=== PATIENT | male | born 1985 | race Two or more races ===

== ENCOUNTER 2018-02-13 22:04 | Inpatient (IN) | payer OTHER ==
[~2018-02-13] VITALS: Ht 172.7 cm; Wt 86.7 kg
--- NOTE | 2018-02-13 22:08 | ED.ADGEN ---
Past History Past Medical History: Hypertension, Other Additional Past Medical Histor: gout Smoking: Non-smoker Drug Use: None Adult General Chief Complaint Chief Complaint ".. I was in the shower.. and started getting dizzy.. and almost completely passed out... I ve had this happen before... " ( Pt. ) ".. I seen he was having problems... he went down.. and was yanira out of it.. confused for over 30 minutes... he was still confused by the time we got here... " ".. I don't know what his pulse rate was.. he did seem to be breathing ..okay.. 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 Pt. denies any chest pain. Denies any shortness of breath. Pt. has had prior episodes of syncope. Patient states onset is dizziness and then everything blacks out. There have been times when he falls so hard he has hit his head. At time of onset of dizziness he was taking a very hot shower. No recent trauma. Recent travel to [facility] for training. No overseas travel recently. Pt. does have a hx of gout and hypertension. There is a strong family history of cardiac disease in the ages of 30+ on both sides of the family. Both sides of family have HTN and Gout. Patient denies any drug use. Patient does have a mild headache currently. Currently assigned to [employer] at [place]. Patient states he works out every day as part of his assignment. Training consist of running two miles + and wt lifting. Pt. 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 Pt. feels he is in extremely good physical condition. Pt. states he can usually tell when a episode in coming on. Dose not know if he has any change in heart rate. Review of Systems Review of Systems Constitutional: Denies fever or chills [] Eyes: Denies change in visual acuity, redness, or eye pain [] HENT: Denies nasal congestion or sore throat [] Respiratory: Denies cough or shortness of breath [] Cardiovascular: No additional information not addressed in HPI [] GI: Denies abdominal pain, nausea, vomiting, bloody stools or diarrhea [] : Denies dysuria or hematuria [] Musculoskeletal: Denies back pain or joint pain [] Integument: Denies rash or skin lesions [] Neurologic: Denies headache, focal weakness or sensory changes []Complaints of syncope and confusion. Endocrine: Denies polyuria or polydipsia [] All other systems were reviewed and found to be within normal limits, except as documented in this note. Family History Family History [place] and Cardiac events, gout, htn in age 30's- both sides of the family. Current Medications Current Medications Current Medications Medications (Trade) Dose Ordered Sig/Jacqui Start Time Stop Time Status Last Admin Dose Admin Lactated Ringer's 1,000 ml @ 1,000 mls/hr Q1H 02/13/18 22:09 02/13/18 23:36 DC 02/13/18 23:28 1,000 MLS/HR See Nursing for home meds. Allergies Allergies nkda Physical Exam Physical Exam Constitutional: Well developed, well nourished, no acute distress, non-toxic appearance. [] HENT: Normocephalic, atraumatic, bilateral external ears normal, oropharynx moist, no oral exudates, nose normal. [] Eyes: PERRLA, EOMI, conjunctiva normal, no discharge. [] Neck: Normal range of motion, no tenderness, supple, no stridor. [] Cardiovascular: Bradycardia Heart rate regular rhythm, no murmur [] Lungs & Thorax: Bilateral breath sounds clear to auscultation [] Abdomen: Bowel sounds normal, soft, no tenderness, no masses, no pulsatile masses. [] Skin: Warm, dry, no erythema, no rash. [] Back: No tenderness, no CVA tenderness. [] Extremities: No tenderness, no cyanosis, no clubbing, ROM intact, no edema. [] Neurologic: Alert and oriented X 3, normal motor function, normal sensory function, no focal deficits noted. []DTRs +2 patella and brachial. Knowledge Architect equal. No drift. Ambulatory without problems. Psychologic: Affect anxious, judgement normal, mood normal. [] Current Patient Data Vital Signs Vital Signs Date Time Temp Pulse Resp B/P (MAP) Pulse Ox O2 Delivery O2 Flow Rate FiO2 02/13/18 22:21 98.2 75 19 97 Room Air Lab Results Laboratory Tests Test 02/13/18 22:38 White Blood Count 7.3 x10^3/uL (4.0-11.0) Red Blood Count 5.01 x10^6/uL (4.30-5.70) Hemoglobin 14.9 g/dL (13.0-17.5) Hematocrit 43.4 % (39.0-53.0) Mean Corpuscular Volume 86 fL (79-100) Mean Corpuscular Hemoglobin 30 pg (25-35) Mean Corpuscular Hemoglobin Concent 34 g/dL (31-37) Red Cell Distribution Width 13.6 % (11.5-14.5) Platelet Count 215 x10^3/uL (140-400) Neutrophils (%) (Auto) 74 % (31-73) H Lymphocytes (%) (Auto) 19 % (24-48) L Monocytes (%) (Auto) 6 % (0-9) Eosinophils (%) (Auto) 1 % (0-3) Basophils (%) (Auto) 1 % (0-3) Neutrophils # (Auto) 5.3 x10^3uL (1.8-7.7) Lymphocytes # (Auto) 1.4 x10^3/uL (1.0-4.8) Monocytes # (Auto) 0.4 x10^3/uL (0.0-1.1) Eosinophils # (Auto) 0.1 x10^3/uL (0.0-0.7) Basophils # (Auto) 0.0 x10^3/uL (0.0-0.2) Erythrocyte Sedimentation Rate 4 (0-15) Prothrombin Time 9.9 SEC (9.4-11.4) Prothrombin Time INR 1.0 (0.9-1.1) PTT 25 SEC (23-33) D-Dimer (Kati) 0.25 mg/L (0.00-0.50) Sodium Level 139 mmol/L (136-145) Potassium Level 4.2 mmol/L (3.5-5.1) Chloride Level 102 mmol/L (98-107) Carbon Dioxide Level 28 mmol/L (21-32) Anion Gap 9 (6-14) Blood Urea Nitrogen 18 mg/dL (8-26) Creatinine 1.3 mg/dL (0.7-1.3) Estimated GFR (Cockcroft-Gault) 63.2 Glucose Level 119 mg/dL (70-99) H Calcium Level 8.7 mg/dL (8.5-10.1) Magnesium Level 1.9 mg/dL (1.8-2.4) Total Bilirubin 0.3 mg/dL (0.2-1.0) Direct Bilirubin 0.1 mg/dL (0.0-0.2) Aspartate Amino Transferase (AST) 9 U/L (15-37) L Alanine Aminotransferase (ALT) 20 U/L (16-63) Alkaline Phosphatase 58 U/L (46-116) Creatine Kinase 94 U/L (39-308) Troponin I Quantitative < 0.017 ng/mL (0-0.055) Total Protein 7.7 g/dL (6.4-8.2) Albumin 4.2 g/dL (3.4-5.0) Lipase 262 U/L (73-393) Ethyl Alcohol Level < 10 mg/dL (0-10) EKG EKG []My interpretation of EKG shows a sinus rhythm at 61 bpm. There is occasional premature atrial contraction. There is some J-point elevation. But no findings acute STEMI with contralateral changes. There is some slight slurring of the ST segment in aVF and lead II Radiology/Procedures Radiology/Procedures I interpretation chest x-ray shows no acute cardiopulmonary findings.[] Course & Med Decision Making Course & Med Decision Making Pertinent Labs and Imaging studies reviewed. (See chart for details). Because of recurrent episodes of syncope and syncope with prolonged confusion. Will admit for observation tonight. Cardiac cause is suspected. Admit to [facility] with cardiology consult and neuro consults. [] Final Impression Final Impression 1. Syncope 2. Hx HTN 3. Hx. Gout Dragon Disclaimer Dragon Disclaimer This electronic medical record was generated, in whole or in part, using a voice recognition dictation system. ASHU RAHMAN MD Feb 13, 2018 22:08
[2018-02-13] MEDS ORDERED: IV RINGERS SOLUTION,LACTATED 1,000 ML IV SCH (22:09)
[2018-02-13 23:07] LABS: BASO % 1 % (0-3); EOS # 0.1 x10^3/uL (0.0-0.7); EOS % 1 % (0-3); HEMATOCRIT 43.4 % (39.0-53.0); HEMOGLOBIN 14.9 g/dL (13.0-17.5); LYMPH # 1.4 x10^3/uL (1.0-4.8); LYMPH % 19 % (24-48); MEAN CORPUSCULAR HEMOGLOBIN 30 pg (25-35); MEAN CORPUSCULAR HGB CONC 34 g/dL (31-37); MEAN CORPUSCULAR VOLUME 86 fL (79-100); MONO # 0.4 x10^3/uL (0.0-1.1); MONO % 6 % (0-9); NEUT # 5.3 x10^3uL (1.8-7.7); NEUT % 74 % (31-73); PLATELET COUNT 215 x10^3/uL (140-400); RED BLOOD COUNT 5.01 x10^6/uL (4.30-5.70); RED CELL DISTRIBUTION WIDTH 13.6 % (11.5-14.5); WHITE BLOOD COUNT 7.3 x10^3/uL (4.0-11.0)
[2018-02-13 23:19] LABS: ALBUMIN 4.2 g/dL (3.4-5.0); CALCIUM 8.7 mg/dL (8.5-10.1); CREATININE 1.3 mg/dL (0.7-1.3); DIRECT BILIRUBIN 0.1 mg/dL (0.0-0.2); GFR 63.2; MAGNESIUM 1.9 mg/dL (1.8-2.4); POTASSIUM 4.2 mmol/L (3.5-5.1); TOTAL BILIRUBIN 0.3 mg/dL (0.2-1.0); TOTAL PROTEIN 7.7 g/dL (6.4-8.2)
[2018-02-13 23:31] LABS: BARBITURATES NEG (NEG); BENZODIAZEPINES NEG (NEG); CANNABINOIDS NEG (NEG); COCAINE NEG (NEG); METHADONE NEG (NEG); OPIATES NEG (NEG); PHENCYCLIDINE NEG (NEG)
[2018-02-13 23:32] LABS: BACTERIA,URINE 0 /HPF (0-FEW); BILIRUBIN,URINE NEG (NEG); CLARITY,URINE CLEAR; COLOR,URINE YELLOW; GLUCOSE,URINE NEG (NEG); NITRITE,URINE NEG (NEG); RBC,URINE 0 /HPF (0-2); SQUAMOUS EPITHELIAL CELL,UR OCC /LPF; UROBILINOGEN,URINE 0.2 mg/dL (0.2 mg/dL); WBC,URINE RARE /HPF (0-4)
--- NOTE | 2018-02-13 23:32 | RAD ---
INDICATION: Syncope, dizziness tonight COMPARISON: None. TECHNIQUE: Axial CT images obtained through the head without intravenous contrast. One or more of the following individualized dose reduction techniques were utilized for this examination: 1. Automated exposure control; 2. Adjustment of the mA and/or kV according to patient size; 3. Use of iterative reconstruction technique. FINDINGS: No intracranial hemorrhage. No midline shift. Basal cisterns patent. Ventricles and sulci are unremarkable. No acute osseous abnormality. Orbits and paranasal sinuses unremarkable. IMPRESSION: 1. No acute intracranial hemorrhage. Electronically signed by: Vish Florez MD (02/13/2018 11:28 PM) [facility]
[2018-02-13 23:35] LABS: AMPHETAMINE/METHAMPHETAMINE NEG (NEG)
[2018-02-13] MEDS ORDERED: ANTI-COAG MONITOR BY PHARMACY. MC PRN (23:45)
[2018-02-13] MEDS ORDERED: ONDANSETRON PF 4 MG/2 ML VIAL. IV PRN (23:45)
[2018-02-13] MEDS ORDERED: ENOXAPARIN ** NOTE DOSE ** SYRINGE SQ STA (23:50)
[2018-02-14] MEDS ORDERED: ASPIRIN 325 MG TABLET PO ONE
[2018-02-14 00:04] LABS: SEDIMENTATION RATE 4 (0-15)
[2018-02-14] MEDS: ENOXAPARIN ** NOTE DOSE ** SYRINGE SQ SCH ×2 (00:15→07:43)
[2018-02-14 00:47] VITALS: BP 116/76
--- NOTE | 2018-02-14 00:58 | EKG ---
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
--- NOTE | 2018-02-14 01:39 | EKG ---
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
[2018-02-14 04:24] VITALS: BP 114/71
[2018-02-14 06:47] LABS: BASO % 1 % (0-3); EOS # 0.2 x10^3/uL (0.0-0.7); EOS % 2 % (0-3); HEMOGLOBIN 14.6 g/dL (13.0-17.5); LYMPH # 2.2 x10^3/uL (1.0-4.8); LYMPH % 31 % (24-48); MEAN CORPUSCULAR HEMOGLOBIN 29 pg (25-35); MEAN CORPUSCULAR HGB CONC 34 g/dL (31-37); MEAN CORPUSCULAR VOLUME 87 fL (79-100); MONO # 0.5 x10^3/uL (0.0-1.1); MONO % 8 % (0-9); NEUT # 4.1 x10^3uL (1.8-7.7); NEUT % 58 % (31-73); PLATELET COUNT 212 x10^3/uL (140-400); RED BLOOD COUNT 4.95 x10^6/uL (4.30-5.70); RED CELL DISTRIBUTION WIDTH 13.4 % (11.5-14.5); WHITE BLOOD COUNT 7.1 x10^3/uL (4.0-11.0)
[2018-02-14 06:52] LABS: CALCIUM 8.9 mg/dL (8.5-10.1); CREATININE 1.1 mg/dL (0.7-1.3); GFR 76.6; POTASSIUM 3.4 mmol/L (3.5-5.1)
--- NOTE | 2018-02-14 09:09 | PDOC2 ---
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 He presents with complaints of a syncopal episode that occurred during a shower. He reports a sensation of lightheadedness and his heart racing and then has no clear memory until he was in the hospital. He says his reported that she caught him before he actually fell and that he had what looked like a seizure. His is not currently present. She reported to the ED that he remained awake but confused until arriving at the ED. He denies loss of continence or biting of tongue. He reports 3 other syncopal episodes over his lifetime starting when he was a teenager. He has had one other episode since being stationed at [facility] [facility] over the last 3 years. He does report episodes of lightheadedness and graying of vision for which he generally sits down and holds his arms in the air. He says these episodes usually resolve after a few minutes. He denies chest discomfort, dyspnea, congestive symptoms. He denies any recent illness, nausea, vomiting or diarrhea. He reports being physically fit and completes his daily PT without problems. This consists of running two + miles and wt lifting. 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 Cardiovascular: HTN Rheumatologic: Gout Past Surgical History wrist Family History He reports cardiac problems in several family members "you name it, they have it " including CAD with MO in father at <age 60, as well as hypertension. Social History non smoker, no significant ETOH, no illicit drugs. 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 Current Medications Current Medications Lactated Ringer's 1,000 ml @ 1,000 mls/hr Q1H IV Last administered on at 23:28; Start 02/13/18 at 22:09; Stop 02/13/18 at 23:36; Status DC Ondansetron HCl (Zofran) 4 mg PRN Q4HRS PRN IV NAUSEA/VOMITING; Start 02/13/18 at 23:45; Stop 02/14/18 at 23:44 Aspirin (Ede Aspirin) 325 mg 1X ONCE PO ; Start 02/14/18 at 00:00; Stop 02/14 at 00:01; Status DC Enoxaparin Sodium (Lovenox 100mg Syringe) 90 mg BID SQ Last administered on 02/14/18at 07:43; Start 02/14/18 at 00:00 Enoxaparin Sodium (Lovenox 100mg Syringe) 90 mg 1X STAT SQ ; Start 02/13/18 at 23:50; Stop 02/13/18 at 23:51; Status UNV Info (Anti-Coagulation Monitoring By Pharmacy) 1 each PRN DAILY PRN MC SEE COMMENTS; Start 02/13/18 at 23:45 Allergies: Coded Allergies: No Known Drug Allergies (Unverified , 02/13/18) Review of System as per HPI or negative General: Alert, Oriented X3, Cooperative, No acute distress HEENT: Atraumatic, EOMI, Other (no Carotid bruits) Lungs: Clear to auscultation, Normal air movement Heart: Regular rate, Normal S1, Normal S2, No murmurs Abdomen: Normal bowel sounds, Soft, No tenderness Extremities: No clubbing, No cyanosis, No edema, Normal pulses Neuro: Normal speech, Strength at 5/5 X4 ext Psych/Mental Status: Mental status NL, Mood NL VITALS Vital Signs Date Time Temp Pulse Resp B/P (MAP) Pulse Ox O2 Delivery O2 Flow Rate FiO2 02/14/18 04:24 97.6 57 14 114/71 (85) 98 Room Air Labs Laboratory Tests Test 02/13/18 22:38 02/13/18 23:01 02/14/18 01:48 02/14/18 06:03 White Blood Count 7.3 x10^3/uL (4.0-11.0) 7.1 x10^3/uL (4.0-11.0) Red Blood Count 5.01 x10^6/uL (4.30-5.70) 4.95 x10^6/uL (4.30-5.70) Hemoglobin 14.9 g/dL (13.0-17.5) 14.6 g/dL (13.0-17.5) Hematocrit 43.4 % (39.0-53.0) 43.0 % (39.0-53.0) Mean Corpuscular Volume 86 fL (79-100) 87 fL (79-100) Mean Corpuscular Hemoglobin 30 pg (25-35) 29 pg (25-35) Mean Corpuscular Hemoglobin Concent 34 g/dL (31-37) 34 g/dL (31-37) Red Cell Distribution Width 13.6 % (11.5-14.5) 13.4 % (11.5-14.5) Platelet Count 215 x10^3/uL (140-400) 212 x10^3/uL (140-400) Neutrophils (%) (Auto) 74 % (31-73) 58 % (31-73) Lymphocytes (%) (Auto) 19 % (24-48) 31 % (24-48) Monocytes (%) (Auto) 6 % (0-9) 8 % (0-9) Eosinophils (%) (Auto) 1 % (0-3) 2 % (0-3) Basophils (%) (Auto) 1 % (0-3) 1 % (0-3) Neutrophils # (Auto) 5.3 x10^3uL (1.8-7.7) 4.1 x10^3uL (1.8-7.7) Lymphocytes # (Auto) 1.4 x10^3/uL (1.0-4.8) 2.2 x10^3/uL (1.0-4.8) Monocytes # (Auto) 0.4 x10^3/uL (0.0-1.1) 0.5 x10^3/uL (0.0-1.1) Eosinophils # (Auto) 0.1 x10^3/uL (0.0-0.7) 0.2 x10^3/uL (0.0-0.7) Basophils # (Auto) 0.0 x10^3/uL (0.0-0.2) 0.0 x10^3/uL (0.0-0.2) Erythrocyte Sedimentation Rate 4 (0-15) Prothrombin Time 9.9 SEC (9.4-11.4) Prothromb Time International Ratio 1.0 (0.9-1.1) Activated Partial Thromboplast Time 25 SEC (23-33) D-Dimer (Kati) 0.25 mg/L (0.00-0.50) Sodium Level 139 mmol/L (136-145) 141 mmol/L (136-145) Potassium Level 4.2 mmol/L (3.5-5.1) 3.4 mmol/L (3.5-5.1) Chloride Level 102 mmol/L (98-107) 104 mmol/L (98-107) Carbon Dioxide Level 28 mmol/L (21-32) 30 mmol/L (21-32) Anion Gap 9 (6-14) 7 (6-14) Blood Urea Nitrogen 18 mg/dL (8-26) 14 mg/dL (8-26) Creatinine 1.3 mg/dL (0.7-1.3) 1.1 mg/dL (0.7-1.3) Estimated GFR (Cockcroft-Gault) 63.2 76.6 Glucose Level 119 mg/dL (70-99) 108 mg/dL (70-99) Calcium Level 8.7 mg/dL (8.5-10.1) 8.9 mg/dL (8.5-10.1) Magnesium Level 1.9 mg/dL (1.8-2.4) Total Bilirubin 0.3 mg/dL (0.2-1.0) Direct Bilirubin 0.1 mg/dL (0.0-0.2) Aspartate Amino Transf (AST/SGOT) 9 U/L (15-37) Alanine Aminotransferase (ALT/SGPT) 20 U/L (16-63) Alkaline Phosphatase 58 U/L (46-116) Creatine Kinase 94 U/L (39-308) Troponin I Quantitative < 0.017 ng/mL (0-0.055) < 0.017 ng/mL (0-0.055) Total Protein 7.7 g/dL (6.4-8.2) Albumin 4.2 g/dL (3.4-5.0) Lipase 262 U/L (73-393) Ethyl Alcohol Level < 10 mg/dL (0-10) Urine Collection Type Unknown Urine Color Yellow Urine Clarity Clear Urine pH 5.5 Urine Specific [place] 1.020 Urine Protein 30 mg/dl (NEG-TRACE) Urine Glucose (UA) Neg mg/dL (NEG) Urine Ketones (Stick) Neg mg/dL (NEG) Urine Blood Neg (NEG) Urine Nitrite Neg (NEG) Urine Bilirubin Neg (NEG) Urine Urobilinogen Dipstick 0.2 mg/dL (0.2 mg/dL) Urine Leukocyte Esterase Neg (NEG) Urine RBC 0 /HPF (0-2) Urine WBC Rare /HPF (0-4) Urine Squamous Epithelial Cells Occ /LPF Urine Bacteria 0 /HPF (0-FEW) Urine Opiates Screen Neg (NEG) Urine Methadone Screen Neg (NEG) Urine Barbiturates Neg (NEG) Urine Phencyclidine Screen Neg (NEG) Urine Amphetamine/Methamphetamine Neg (NEG) Urine Benzodiazepines Screen Neg (NEG) Urine Cocaine Screen Neg (NEG) Urine Cannabinoids Screen Neg (NEG) Urine Ethyl Alcohol Neg (NEG) Assessment/Plan 1. syncope - prob neurocardiogenic. Neuro consulted to rule out seizure with plans for possible outpatient EEG monitoring. Check orthostatic vital signs. Suggest echo and outpatient event monitoring for arrhythmias. Reviewed preventative actions/exercises with patient. 2. hypertension - controlled on current therapy. 3. mild hypokalemia - replace per PCP FIONA BREAUX MD 02/14/18 2114: CONSULT Assessment/Plan Patient seen and examined. Agree with AIRPORT OPERATIONS COORDINATOR's assessment and plan. Recurrent syncope suspicious for neurocardiogenic etiology 2D echo showed normal LV function Tele did not show any significant arrhythmias Plan outpatient Tilt table test and event monitor recording Thank you for your consultation BOLA SANABRIA APRN Feb 14, 2018 09:09 FIONA BREAUX MD Feb 14, 2018 21:14
--- NOTE | 2018-02-14 09:17 | RAD ---
Examination: CHEST PA LATERAL History: Syncope, dizziness tonight Comparison/Correlation: None Findings: PA and lateral views of chest were obtained. Heart size and pulmonary vascular are normal. No infiltrate or pleural effusion. Bony structures are normal. Impression: No active disease. Electronically signed by: Gilbert Cox MD (02/14/2018 9:13 AM) [id number]
[2018-02-14 10:21] VITALS: BP 113/77
--- NOTE | 2018-02-14 10:45 | HP ---
ADMIT DATE: 02/13/2018 HISTORY OF PRESENT ILLNESS: The patient is a 32-year-old male patient who came to the Emergency Room. Apparently, he was in the shower and started getting dizzy, almost completely passed out. Apparently, he has had this happened before about 4-5 times. Apparently, his witnessed and saw him went down, he was kind of out of it, according to her confused for over 30 minutes. He was still confused by the time he got to the Emergency Room. He did have some twitching. He was evaluated in the Emergency Room and was extensively investigated including lab work and imaging studies that include head CT and was admitted to consult the neurologist as well as the Cardiology team. PAST MEDICAL HISTORY: Significant for hypertension, gout, and glaucoma. He apparently has had similar symptoms before, but was never diagnosed with any seizure or cardiac arrhythmias. PAST SURGICAL HISTORY: Significant for wisdom teeth extraction. ALLERGIES: He has no known drug allergies. MEDICATIONS: Unfortunately, we do not know the medications that he is on, as he gets medications from [facility]. FAMILY HISTORY: He has 3 brothers and 4 sisters. His older brother has hypertension and gout and his oldest sister has hypertension, CVA. His mother is alive in her 50s and she has multiple cerebrovascular accidents. His father is alive in his early 60s and has hypertension and gout. SOCIAL HISTORY: He is , has 2 sons and 2 daughters. He does not smoke, drink alcohol or do recreational drugs. 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 REVIEW OF SYSTEMS: The patient denied any blurring of vision, cataract, glaucoma or macular degeneration. He has had glaucoma in his right eye. Denied any earache, tinnitus or sensorineural deafness. Denied any nosebleeds, stuffy nose or postnasal drip. Denied any sore throat, sore tongue, toothache, hoarseness of voice or difficulty swallowing. Denied any nausea, vomiting, diarrhea or constipation. Denied any hematemesis, melena or hematochezia. Denied any dysuria, frequency or hematuria. Denied any chest pain, shortness of breath, orthopnea, paroxysmal nocturnal dyspnea. Denied any cough, phlegm or hemoptysis. Did complain of dizziness and syncope, possible seizure with postictal state. PHYSICAL EXAMINATION: GENERAL: On arrival to the Emergency Room, he apparently looked well and was clearly in no apparent respiratory distress. No pallor, jaundice, cyanosis, lymphadenopathy or thyromegaly. No jugular venous distension. No limb edema. VITAL SIGNS: His heart rate was 75, blood pressure 142/82, temperature was 98.2, respiratory rate was 19 and oxygen saturation was 97% on room air. HEENT: Showed normocephalic, atraumatic. NECK: Supple. HEART: Showed normal first and second sounds. No gallop, rub or murmur. CHEST: Clear to auscultation. No crepitation or rhonchi. ABDOMEN: Distended, soft, nontender. No guarding or rigidity. No organomegaly. Hernial orifice intact. Bowel sounds normal. NEUROLOGIC: He was awake, alert, responding appropriately. All cranial nerves intact. EXTREMITIES: He moves extremities without difficulty. He was ambulating without any difficulty. Examination of the extremities showed no clubbing, cyanosis or edema. LABORATORY DATA: While in the Emergency Room, he was extensively investigated. He had CBC, which showed a white cell count of 7300, hemoglobin 15, hematocrit 43, MCV 86 and platelet count of 215,000 with normal manual differential. His chemistry showed a serum sodium of 139, potassium 4.2, chloride 102, bicarbonate 28, anion gap of 9, BUN 18, creatinine 1.3, estimated GFR was 63 mL per minute. His glucose was 119. Calcium was 8.7, magnesium was 1.9. Total bilirubin, AST, ALT, alkaline phosphatase were normal. His CK was 94 and had 2 sets of cardiac enzymes, both were negative and showed troponin to be less than 0.017. Total protein was 7.7, albumin was 4.2 and lipase was 262. His prothrombin time was 9.9, INR of 1, aPTT was 25 and D-dimer was only 0.25 mg/dL. Urinalysis showed the urine was yellow, clear with a pH of 5.5, specific gravity of 1.028. There was a small amount of protein. The urine was negative for glucose, ketones, blood, nitrite, bilirubin and leukocyte esterase. There was no rbc's, very few wbc's and no bacteria. His urine toxicology screen was negative. RADIOLOGICAL DATA: His CT scan of the head showed no intracranial hemorrhage, no midline shift. Basal cisterns are patent. Ventricles and sulci are unremarkable. No acute osseous abnormality. Orbits and paranasal sinuses are unremarkable. His chest x-ray showed that the heart size and pulmonary vasculature are normal. No infiltrate, pleural effusion. Bony structures are normal. SUMMARY: This is a 32-year-old male patient who came in with a syncopal episode versus seizure with postictal state. PLAN: I have consulted the contact acid plant operator as well as the Neurology team to assist in his evaluation and management. JONO SANTIAGO MD DR: FORTUNATO/jose JOB#: [id number] / [id number]
[2018-02-14 14:46] VITALS: BP 125/82
--- NOTE | 2018-02-14 17:39 | CARD ---
MR#: [id number] Date of Study: 02/14/2018 Ordering Physician: JONO SANTIAGO, Referring Physician: JONO SANTIAGO, Tech: Usha Rolle APPROVED REPORT EXAM: Two-dimensional and M-mode echocardiogram with Doppler and color Doppler. Other Information Quality : GoodHR: 62bpm Rhythm : NSR INDICATION Syncope 2D DIMENSIONS RVDd2.4 (2.9-3.5cm)Left Atrium(2D)3.3 (1.6-4.0cm) IVSd1.1 (0.7-1.1cm)Aortic Root(2D)3.5 (2.0-3.7cm) LVDd4.5 (3.9-5.9cm)LVOT Diameter2.1 (1.8-2.4cm) PWd1.0 (0.7-1.1cm)LVDs3.2 (2.5-4.0cm) FS (%) 29.1 %SV52.4 ml Aortic Valve AoV Peak Rocky.117.5cm/sAoV VTI22.3cm AO Peak GR.5.5mmHgLVOT Peak Rocky.95.7cm/s LVOT VTI 17.71cmAO Mean GR.3mmHg BELKYS (VMAX)2.76qc2ATF (VTI)2.75cm2 Mitral Valve MV E Ehgojpdq64.8cm/sMV DECEL [id number] MV A Zbtqmzfg68.7cm/sE/A Ratio1.6 Pulmonary Valve PV Peak Zoewvpet66.4cm/sPV Peak Grad.3mmHg Tricuspid Valve TR P. Terhotku145iz/sRAP XMUMLBMB1nsDs TR Peak Gr.94sqRdNUMZ11bdKe Pulmonary Vein S1 Ubfqutkj48.7cm/sD2 Rnggdugl10.8cm/s LEFT VENTRICLE The left ventricle is normal size. There is normal left ventricular wall thickness. The left ventricu lar systolic function is normal and the ejection fraction is within normal range. The Ejection Fracti on is 55-60%. There is normal LV segmental wall motion. The left ventricular diastolic function and f illing is normal for age. RIGHT VENTRICLE The right ventricle is normal size. There is normal right ventricular wall thickness. The right ventr icular systolic function is normal. ATRIA The left atrium size is normal. The right atrium size is normal. The interatrial septum is intact wit h no evidence for an atrial septal defect or patent foramen ovale as noted on 2-D or Doppler imaging. AORTIC VALVE The aortic valve is normal in structure and function. Doppler and Color Flow revealed no significant aortic regurgitation. There is no significant aortic valvular stenosis. MITRAL VALVE The mitral valve is normal in structure and function. There is no mitral valve stenosis. Doppler and Color Flow revealed trace mitral regurgitation. TRICUSPID VALVE The tricuspid valve is normal in structure and function. Doppler and Color Flow revealed trace tricus pid regurgitation. PULMONIC VALVE The pulmonary valve is normal in structure and function. Doppler and Color Flow revealed trace pulmon ic valvular regurgitation. GREAT VESSELS The aortic root is normal in size. Normal pulmonary venous flow (Doppler). The IVC is normal in size and collapses >50% with inspiration. PERICARDIAL EFFUSION There is no evidence of significant pericardial effusion. Critical Notification Critical Value: No <Conclusion> The left ventricle is normal size. The left ventricular systolic function is normal and the ejection fraction is within normal range. The Ejection Fraction is 55-60%. There is no significant aortic valvular stenosis. Doppler and Color Flow revealed no significant aortic regurgitation. Doppler and Color Flow revealed trace mitral regurgitation. Doppler and Color Flow revealed trace tricuspid regurgitation. Signed by : Vincenzo Crook MD Electronically Approved : 02/14/2018 17:38:25
[2018-02-14] MEDS ORDERED: AMLO10TA4 PO (18:57)
[2018-02-14 19:42] VITALS: BP 112/69
--- NOTE | 2018-02-14 21:47 | PN ---
DATE: 02/14/2018 SUBJECTIVE: The patient was admitted yesterday with clearly seemed to be syncope versus tonic-clonic seizure with postictal state. He has no further similar episodes overnight or this morning, although he said that he has four similar episodes before. We did consult the Cardiology team who recommended doing an echocardiogram and was seen also by neurologist. PHYSICAL EXAMINATION: GENERAL: When I examined him this morning, he looked well and was clearly in no apparent respiratory distress. No pallor, jaundice, cyanosis, or thyromegaly. No jugular venous distension. No limb edema. VITAL SIGNS: His heart rate was 57, blood pressure was 114/71, temperature was 97.6, respiratory rate was 14, and oxygen saturation was 98%. HEAD, EYES, EARS, NOSE, AND THROAT: Normocephalic, atraumatic. NECK: Supple. HEART: Showed normal first and second heart sounds. No gallop, rub, or murmur. CHEST: Clear to auscultation. No crepitation or rhonchi. ABDOMEN: Distended, soft, nontender. No guarding or rigidity. No organomegaly. All hernial orifice intact. Bowel sounds normal. NEUROLOGIC: He was awake, alert, responding appropriately. Cranial nerves intact. He moves extremities without difficulty, ambulates without assistance or assistive devices. LABORATORY DATA: His lab work this morning showed that his white cell count is 7100, hemoglobin 14.6, hematocrit 43, MCV 87, and platelet count of 212,000. His chemistry showed a serum sodium 141, potassium 3.4, chloride 104, bicarbonate was 30, anion gap of 7, BUN 14, creatinine 1.1, estimated GFR was 76 mL per minute. His glucose was 108. Calcium was 8.9. ASSESSMENT: 1. Syncope versus seizure disorder for which he was seen by the foreign service officer as well as neurologist. 2. Hypertension. 3. Gout. 4. Glaucoma. JONO SANTIAGO MD DR: FORTUNATO/jose JOB#: [id number] / [id number]
[2018-02-14 22:59] VITALS: BP 117/73
[2018-02-15 06:05] VITALS: BP 101/63
--- NOTE | 2018-02-15 07:56 | CONS ---
DATE OF CONSULTATION: 02/14/2018 REFERRING PHYSICIAN: Dr. Venegas. REASON FOR CONSULTATION: Syncope versus seizure. HISTORY OF PRESENT ILLNESS: This is a 32-year-old right-handed male who was admitted through Emergency Room on account of a possible syncopal attack versus seizure. According to the patient, he was taking a shower. He was standing and taking a shower, all of a sudden he felt dizzy and almost going to pass out. He was seen by his going down to the floor. He became unresponsive and then confused, disoriented for approximately 30 minutes. The patient was brought by his to the Emergency Room and he was somewhat confused. The extensive workup was done including a head CT scan, which revealed no evidence of acute intracranial process. Blood workup was unremarkable. According to the patient, he had similar episodes in the last 4 years. He described 4 episodes. According to the patient, he had some twitching of his upper extremities. He denies tongue biting or bowel or bladder dysfunctions. He did not recall the events. PAST MEDICAL HISTORY: Significant for hypertension, gout, glaucoma and recurrent syncopal episodes in the past. He denies a history of seizure or heart disease or cardiac arrhythmias. PAST SURGICAL HISTORY: Significant for wisdom teeth extraction. FAMILY HISTORY: Positive for hypertension, stroke. His mother is alive and had a stroke. His father is alive and had hypertension and gout. SOCIAL HISTORY: The patient is . He has 4 children. He denies smoking, but he denies smoking, alcohol drinking, or illicit drug use. REVIEW OF SYSTEMS: A 10-point review of system was performed and as mentioned above in the history of present illness. PHYSICAL EXAMINATION: GENERAL: Well-developed, well-nourished male, not in acute distress. VITAL SIGNS: Blood pressure is 113/77, respiratory rate is 20, pulse is 53, temperature is 98.4, and oxygen saturation 97% on room air. HEENT: Normocephalic, atraumatic, otherwise unremarkable. NECK: Supple. Negative for carotid bruit, lymphadenopathy or thyromegaly. LUNGS: Clear to A and P. CARDIOVASCULAR: Regular rate and rhythm, normal S1, S2. There is no S3, S4, or murmur. ABDOMEN: Soft. Bowel sounds positive. EXTREMITIES: Negative for cyanosis, clubbing or pitting edema. NEUROLOGIC: Mental status: The patient is alert and oriented x 3. Speech is fluent. There is no language dysfunction. Memory, judgment, and abstract thinking are normal. The patient denies hallucination or delusion. Cranial Nerves: Visual griggs are full. The pupils are reactive to light and accommodation. The extraocular movements are intact. There is no nystagmus. There is no facial motor or sensory deficit. Hearing is intact bilaterally. The palate is elevated symmetrically. Sternocleidomastoid muscles are powerful bilaterally. The patient shrugs his shoulders symmetrically, protrudes his tongue in the midline without fasciculation or atrophy. Motor: No focal muscle bulk was seen. The tone is normal. The strength is 5/5 throughout. Sensory examination: Revealed normal pinprick, light touch, vibratory and position senses. Deep tendon reflexes were symmetric and active with absent Achilles responses. Gait and coordination are normal. LABORATORY DATA: CBC revealed white blood cells of 7.1 thousand, hemoglobin 14.6, hematocrit 43, platelet count 212,000. Chemistry revealed sodium of 141, potassium 3.4, chloride 104, CO2 of 30, BUN 14, creatinine 1.1, glucose 108, calcium 8.9. Triglyceride is high at 207. Cholesterol is normal at 146, LDL is 62 and HDL 43. TSH is 4.3. Urinalysis is negative for urinary tract infections. Urine drug screen is negative. IMPRESSION: 1. Recurrent syncope, etiology uncertain, rule out cardiac arrhythmia versus orthostatic hypotension and vasovagal phenomena; however, the complete loss of consciousness and postictal confusion for 30 minutes raise questions of possible underlying seizure-like activities. 2. Multiple medical problems include hypertension, gout. RECOMMENDATION: 1. We will check blood pressure and pulse for orthostatic changes. 2. Cardiology consult to rule out cardiac etiology of syncope as cardiac arrhythmia and possible need for a long Holter monitoring. 3. Electroencephalogram, which can be done on an outpatient basis. M Rosa DUTTA MD DR: HUGO/jose JOB#: [id number] / [id number]
[2018-02-15 08:00] VITALS: BP 121/82
[2018-02-15 08:05] VITALS: BP 125/81
[2018-02-15 08:10] VITALS: BP 119/78
--- NOTE | 2018-02-15 08:10 | RAD ---
Carotid ultrasound, 02/14/2018: HISTORY: Syncope Duplex evaluation of the carotid arteries and neck was performed including grayscale, color-flow and spectral Doppler analysis. No significant focal plaque formation is identified. The peak systolic velocity in the right internal carotid artery is 38 cm/s with an end-diastolic velocity of 14 cm/s and an internal carotid to common carotid artery ratio of 0.9. The peak systolic velocity in the left internal carotid artery is 41 cm per sec with an end-diastolic velocity of 21 cm/s and an internal carotid to common carotid artery ratio of 0.9. These Doppler findings do not suggest significant stenosis. Antegrade flow was noted in both vertebral arteries in the neck. IMPRESSION: No duplex evidence of a significant carotid stenosis in the neck. Note: Stenosis calculations for CT, MRA and conventional angiography are based upon determination of the distal ICA diameter in accordance with the NASCET methodology. Stenosis calculations for Doppler studies are derived from validated velocity criteria which are known to correlate with NASCET methodology of determining stenosis. Electronically signed by: Miko Shah MD (02/15/2018 8:07 AM) [facility]
[2018-02-15 08:40] LABS: BASO % 1 % (0-3); EOS # 0.2 x10^3/uL (0.0-0.7); EOS % 3 % (0-3); HEMATOCRIT 45.1 % (39.0-53.0); HEMOGLOBIN 15.3 g/dL (13.0-17.5); LYMPH # 1.4 x10^3/uL (1.0-4.8); LYMPH % 28 % (24-48); MEAN CORPUSCULAR HEMOGLOBIN 30 pg (25-35); MEAN CORPUSCULAR HGB CONC 34 g/dL (31-37); MEAN CORPUSCULAR VOLUME 87 fL (79-100); MONO # 0.4 x10^3/uL (0.0-1.1); MONO % 8 % (0-9); NEUT # 2.9 x10^3uL (1.8-7.7); NEUT % 60 % (31-73); PLATELET COUNT 202 x10^3/uL (140-400); RED BLOOD COUNT 5.19 x10^6/uL (4.30-5.70); RED CELL DISTRIBUTION WIDTH 13.3 % (11.5-14.5); WHITE BLOOD COUNT 4.8 x10^3/uL (4.0-11.0)
[2018-02-15 08:51] LABS: ALBUMIN/GLOBULIN RATIO 1.1 (1.0-1.7); CALCIUM 9.1 mg/dL (8.5-10.1); CREATININE 1.1 mg/dL (0.7-1.3); GFR 76.6; MAGNESIUM 2.1 mg/dL (1.8-2.4); POTASSIUM 4.2 mmol/L (3.5-5.1); TOTAL BILIRUBIN 0.4 mg/dL (0.2-1.0); TOTAL PROTEIN 7.6 g/dL (6.4-8.2)
[2018-02-15] MEDS ORDERED: ENOXAPARIN 40 MG/0.4 ML SYRINGE. SQ SCH (09:00)
[2018-02-15] MEDS ORDERED: amLODIPine BESYLATE 10 MG TABLET PO SCH (09:00)
--- NOTE | 2018-02-15 09:43 | PDOC ---
PROGRESS NOTES Diagnosis Problem Problems Medical Problems: (1) Syncope and collapse Status: Acute Assessment Problems Medical Problems: (1) Syncope and collapse Status: Acute 1. syncope - prob neurocardiogenic. Orthostatic BPs normal today. Echo with normal LV function. Sinus tachy noted by nursing this am, up to 140's with ambulation to the bathroom. Reviewed preventative actions/exercises with patient. Plan for outpatient event monitoring for 30 days and schedule for tilt table test. Follow up in office in 4-6 weeks after event monitoring complete. 2. hypertension - controlled on current therapy. 3. mild hypokalemia - replaced. Subjective up ambulating without problems. "ready to go home". anxious about physical activity until testing complete. no chest pain, dyspnea, palpitations or lightheadedness. Objective Vital Signs Date Time Temp Pulse Resp B/P (MAP) Pulse Ox O2 Delivery O2 Flow Rate FiO2 02/15/18 08:17 80 02/15/18 06:05 97.4 18 101/63 (76) 98 Room Air Intake and Output 02/15/18 07:00 Intake Total 1560 ml Balance 1560 ml Intake Oral 1560 ml # Voids 3 Abdomen: Normal bowel sounds, Soft, No tenderness Heart: Regular rate, Normal S1, Normal S2 Extremities: No cyanosis, No edema, Normal pulses General: Alert, Oriented X3, Cooperative HEENT: Atraumatic, EOMI, Mucous membr. moist/pink Lungs: Clear to auscultation Neuro: Normal speech, Strength at 5/5 X4 ext Psych/Mental Status: Mental status NL, Other (anxious ) Review of Relevant I have reviewed the following items cornell (where applicable) has been applied. Labs Laboratory Tests Test 02/13/18 22:38 02/13/18 23:01 02/14/18 01:48 02/14/18 06:03 White Blood Count 7.3 x10^3/uL (4.0-11.0) 7.1 x10^3/uL (4.0-11.0) Red Blood Count 5.01 x10^6/uL (4.30-5.70) 4.95 x10^6/uL (4.30-5.70) Hemoglobin 14.9 g/dL (13.0-17.5) 14.6 g/dL (13.0-17.5) Hematocrit 43.4 % (39.0-53.0) 43.0 % (39.0-53.0) Mean Corpuscular Volume 86 fL (79-100) 87 fL (79-100) Mean Corpuscular Hemoglobin 30 pg (25-35) 29 pg (25-35) Mean Corpuscular Hemoglobin Concent 34 g/dL (31-37) 34 g/dL (31-37) Red Cell Distribution Width 13.6 % (11.5-14.5) 13.4 % (11.5-14.5) Platelet Count 215 x10^3/uL (140-400) 212 x10^3/uL (140-400) Neutrophils (%) (Auto) 74 % (31-73) 58 % (31-73) Lymphocytes (%) (Auto) 19 % (24-48) 31 % (24-48) Monocytes (%) (Auto) 6 % (0-9) 8 % (0-9) Eosinophils (%) (Auto) 1 % (0-3) 2 % (0-3) Basophils (%) (Auto) 1 % (0-3) 1 % (0-3) Neutrophils # (Auto) 5.3 x10^3uL (1.8-7.7) 4.1 x10^3uL (1.8-7.7) Lymphocytes # (Auto) 1.4 x10^3/uL (1.0-4.8) 2.2 x10^3/uL (1.0-4.8) Monocytes # (Auto) 0.4 x10^3/uL (0.0-1.1) 0.5 x10^3/uL (0.0-1.1) Eosinophils # (Auto) 0.1 x10^3/uL (0.0-0.7) 0.2 x10^3/uL (0.0-0.7) Basophils # (Auto) 0.0 x10^3/uL (0.0-0.2) 0.0 x10^3/uL (0.0-0.2) Erythrocyte Sedimentation Rate 4 (0-15) Prothrombin Time 9.9 SEC (9.4-11.4) Prothromb Time International Ratio 1.0 (0.9-1.1) Activated Partial Thromboplast Time 25 SEC (23-33) D-Dimer (Kati) 0.25 mg/L (0.00-0.50) Sodium Level 139 mmol/L (136-145) 141 mmol/L (136-145) Potassium Level 4.2 mmol/L (3.5-5.1) 3.4 mmol/L (3.5-5.1) Chloride Level 102 mmol/L (98-107) 104 mmol/L (98-107) Carbon Dioxide Level 28 mmol/L (21-32) 30 mmol/L (21-32) Anion Gap 9 (6-14) 7 (6-14) Blood Urea Nitrogen 18 mg/dL (8-26) 14 mg/dL (8-26) Creatinine 1.3 mg/dL (0.7-1.3) 1.1 mg/dL (0.7-1.3) Estimated GFR (Cockcroft-Gault) 63.2 76.6 Glucose Level 119 mg/dL (70-99) 108 mg/dL (70-99) Calcium Level 8.7 mg/dL (8.5-10.1) 8.9 mg/dL (8.5-10.1) Magnesium Level 1.9 mg/dL (1.8-2.4) Total Bilirubin 0.3 mg/dL (0.2-1.0) Direct Bilirubin 0.1 mg/dL (0.0-0.2) Aspartate Amino Transf (AST/SGOT) 9 U/L (15-37) Alanine Aminotransferase (ALT/SGPT) 20 U/L (16-63) Alkaline Phosphatase 58 U/L (46-116) Creatine Kinase 94 U/L (39-308) Troponin I Quantitative < 0.017 ng/mL (0-0.055) < 0.017 ng/mL (0-0.055) Total Protein 7.7 g/dL (6.4-8.2) Albumin 4.2 g/dL (3.4-5.0) Triglycerides Level 207 mg/dL (0-150) Cholesterol Level 146 mg/dL (0-200) LDL Cholesterol, Calculated 62 mg/dL (0-100) VLDL Cholesterol, Calculated 41 mg/dL (0-40) Non-HDL Cholesterol Calculated 103 mg/dL (0-129) HDL Cholesterol 43 mg/dL (40-60) Cholesterol/HDL Ratio 3.0 Lipase 262 U/L (73-393) Thyroid Stimulating Hormone (TSH) 4.355 uIU/mL (0.358-3.740) Ethyl Alcohol Level < 10 mg/dL (0-10) Urine Collection Type Unknown Urine Color Yellow Urine Clarity Clear Urine pH 5.5 Urine Specific [place] 1.020 Urine Protein 30 mg/dl (NEG-TRACE) Urine Glucose (UA) Neg mg/dL (NEG) Urine Ketones (Stick) Neg mg/dL (NEG) Urine Blood Neg (NEG) Urine Nitrite Neg (NEG) Urine Bilirubin Neg (NEG) Urine Urobilinogen Dipstick 0.2 mg/dL (0.2 mg/dL) Urine Leukocyte Esterase Neg (NEG) Urine RBC 0 /HPF (0-2) Urine WBC Rare /HPF (0-4) Urine Squamous Epithelial Cells Occ /LPF Urine Bacteria 0 /HPF (0-FEW) Urine Opiates Screen Neg (NEG) Urine Methadone Screen Neg (NEG) Urine Barbiturates Neg (NEG) Urine Phencyclidine Screen Neg (NEG) Urine Amphetamine/Methamphetamine Neg (NEG) Urine Benzodiazepines Screen Neg (NEG) Urine Cocaine Screen Neg (NEG) Urine Cannabinoids Screen Neg (NEG) Urine Ethyl Alcohol Neg (NEG) Test 02/15/18 08:10 White Blood Count 4.8 x10^3/uL (4.0-11.0) Red Blood Count 5.19 x10^6/uL (4.30-5.70) Hemoglobin 15.3 g/dL (13.0-17.5) Hematocrit 45.1 % (39.0-53.0) Mean Corpuscular Volume 87 fL (79-100) Mean Corpuscular Hemoglobin 30 pg (25-35) Mean Corpuscular Hemoglobin Concent 34 g/dL (31-37) Red Cell Distribution Width 13.3 % (11.5-14.5) Platelet Count 202 x10^3/uL (140-400) Neutrophils (%) (Auto) 60 % (31-73) Lymphocytes (%) (Auto) 28 % (24-48) Monocytes (%) (Auto) 8 % (0-9) Eosinophils (%) (Auto) 3 % (0-3) Basophils (%) (Auto) 1 % (0-3) Neutrophils # (Auto) 2.9 x10^3uL (1.8-7.7) Lymphocytes # (Auto) 1.4 x10^3/uL (1.0-4.8) Monocytes # (Auto) 0.4 x10^3/uL (0.0-1.1) Eosinophils # (Auto) 0.2 x10^3/uL (0.0-0.7) Basophils # (Auto) 0.0 x10^3/uL (0.0-0.2) Sodium Level 139 mmol/L (136-145) Potassium Level 4.2 mmol/L (3.5-5.1) Chloride Level 104 mmol/L (98-107) Carbon Dioxide Level 31 mmol/L (21-32) Anion Gap 4 (6-14) Blood Urea Nitrogen 12 mg/dL (8-26) Creatinine 1.1 mg/dL (0.7-1.3) Estimated GFR (Cockcroft-Gault) 76.6 BUN/Creatinine Ratio 11 (6-20) Glucose Level 98 mg/dL (70-99) Calcium Level 9.1 mg/dL (8.5-10.1) Magnesium Level 2.1 mg/dL (1.8-2.4) Total Bilirubin 0.4 mg/dL (0.2-1.0) Aspartate Amino Transf (AST/SGOT) 12 U/L (15-37) Alanine Aminotransferase (ALT/SGPT) 24 U/L (16-63) Alkaline Phosphatase 56 U/L (46-116) Total Protein 7.6 g/dL (6.4-8.2) Albumin 4.0 g/dL (3.4-5.0) Albumin/Globulin Ratio 1.1 (1.0-1.7) Microbiology 02/14/18 Blood Culture - Preliminary, Resulted NO GROWTH AFTER 1 DAY... Medications Current Medications Lactated Ringer's 1,000 ml @ 1,000 mls/hr Q1H IV Last administered on at 23:28; Start 02/13/18 at 22:09; Stop 02/13/18 at 23:36; Status DC Ondansetron HCl (Zofran) 4 mg PRN Q4HRS PRN IV NAUSEA/VOMITING; Start 02/13/18 at 23:45; Stop 02/14/18 at 23:44; Status DC Aspirin (Ede Aspirin) 325 mg 1X ONCE PO ; Start 02/14/18 at 00:00; Stop 02/14 at 00:01; Status DC Enoxaparin Sodium (Lovenox 100mg Syringe) 90 mg BID SQ Last administered on 02/14/18at 07:43; Start 02/14/18 at 00:00; Stop 02/14/18 at 19:03; Status DC Enoxaparin Sodium (Lovenox 100mg Syringe) 90 mg 1X STAT SQ ; Start 02/13/18 at 23:50; Stop 02/13/18 at 23:51; Status UNV Info (Anti-Coagulation Monitoring By Pharmacy) 1 each PRN DAILY PRN MC SEE COMMENTS; Start 02/13/18 at 23:45 Amlodipine Besylate (Norvasc) 10 mg DAILY PO Last administered on 02/15/18at 08: 17; Start 02/15/18 at 09:00 Enoxaparin Sodium (Lovenox 40mg Syringe) 40 mg DAILY SQ ; Start 02/15/18 at 09: 00 Active Scripts Active Reported Norvasc (Amlodipine Besylate) 10 Mg Tablet 1 Tab PO DAILY Vitals/I & O Vital Sign - Last 24 Hours 02/14/18 02/14/18 02/14/18 02/14/18 10:21 14:46 19:42 22:59 Temp 98.4 98.3 98.2 98.2 Pulse 53 70 61 62 Resp 20 20 18 18 B/P (MAP) 113/77 (89) 125/82 (96) 112/69 (83) 117/73 (88) Pulse Ox 97 98 97 95 O2 Delivery Room Air Room Air Room Air Room Air 02/15/18 02/15/18 06:05 08:17 Temp 97.4 Pulse 56 80 Resp 18 B/P (MAP) 101/63 (76) Pulse Ox 98 O2 Delivery Room Air Intake and Output 02/14/18 02/14/18 02/15/18 15:00 23:00 07:00 Intake Total 480 ml 480 ml 600 ml Balance 480 ml 480 ml 600 ml BOLA SANABRIA APRN Feb 15, 2018 09:43
--- NOTE | 2018-02-15 15:02 | DS ---
DATE OF DISCHARGE: 02/15/2018 HOSPITAL COURSE: The patient is a 32-year-old male patient who was admitted with syncopal episode, apparently has multiple episodes like this before. He was seen in consultation by the customer counter associate as well as the neurologist. All his lab works are within acceptable range. He has 2 sets of cardiac enzymes, which ruled out myocardial ischemia. He has had CT scan of the head was unremarkable and showed no acute intracranial pathology. His bilateral carotid Doppler showed there is no Doppler evidence of significant carotid stenosis in the neck. He has had an echocardiogram done, which showed that the left ventricle is normal in size, left ventricular systolic function is normal with an ejection fraction within normal range of 55-60%. There is no significant aortic valvular stenosis, no significant aortic regurgitation, trace mitral regurgitation, trace tricuspid regurgitation. He was monitored throughout his stay here and has remained stable, a decision was made to discharge him home to follow with the tilt table and the event monitor as an outpatient and also an EEG as an outpatient as recommended by the neurologist. PHYSICAL EXAMINATION: GENERAL: When I saw him today, he looked well and was clearly in no apparent respiratory distress. VITAL SIGNS: His heart rate was 56, blood pressure was 101/63, temperature was 97.4, respiratory rate was 18, and oxygen saturation was 98%. HEENT: Examination of the head, eyes, ears, nose and throat showed normocephalic, atraumatic. NECK: Supple. HEART: Showed normal first and second sounds. No gallop, rub or murmur. CHEST: Clear to auscultation. No crepitation or rhonchi. ABDOMEN: Distended, soft, nontender. No guarding or rigidity. No organomegaly. Hernial orifices are intact. Bowel sounds normal. NEUROLOGIC: He was awake, alert, responding appropriately. His cranial nerves are intact. EXTREMITIES: He moves extremities without difficulty. He ambulates without assistance or assistive devices. LABORATORY DATA: His lab work showed a serum sodium 139, potassium 4.2, chloride 104, bicarbonate 31, anion gap of 4, BUN 12, creatinine 1.1, estimated GFR was 77 mL per minute. His glucose was 98, calcium was 9.1, magnesium 2.1. Total bilirubin, AST, ALT, alkaline phosphatase were normal. His total protein was 7.6, albumin 4. Serum triglycerides were 207, total cholesterol was 146, LDL was 62, VLDL was 41, HDL was 43, and ratio was 3. His thyroid function is slightly elevated at 4.355. DISCHARGE INSTRUCTIONS: The patient was discharged home to continue on amlodipine 10 mg once a day. He will have a tilt table test as well as event monitor and EEG as an outpatient. JONO SANTIAGO MD DR: FORTUNATO/jose JOB#: [id number] / [id number]
--- NOTE | 2018-02-15 22:47 | PN ---
DATE: 02/15/2018 SUBJECTIVE: The patient denies any new medical neurological complaints. He denies headaches, visual disturbances, nausea, vomiting, chest pain, shortness of breath or palpitation, dysarthria, dysphagia. DIAGNOSTIC DATA: Carotid Doppler study revealed no evidence of significant carotid stenosis in the neck. OBJECTIVE: GENERAL: Well-developed, well-nourished male, not in acute distress. VITAL SIGNS: Blood pressure 101/63, respiratory rate 18, pulse is 56 and sinus, oxygen saturation 98% on room air. HEENT: Normocephalic, atraumatic, otherwise unremarkable. NECK: Supple. Negative for carotid bruit, lymphadenopathy or thyromegaly. LUNGS: Clear to A and P. CARDIOVASCULAR: Regular rate and rhythm, normal S1, S2. There is no S3, S4, or murmur. ABDOMEN: Soft. Bowel sounds positive. EXTREMITIES: Negative for cyanosis, clubbing or pitting edema. NEUROLOGIC: Normal mental status and intact cranial nerves. There is no evidence of focal motor or sensory deficit. Deep tendon reflexes were symmetric and active with absent Achilles responses. Gait and coordination are normal. IMPRESSION: 1. Recurrent syncopal episode versus seizure. 2. Multiple medical problems include hypertension and gout. RECOMMENDATIONS: 1. Continue with current management and follow up Cardiology recommendations. 2. We will arrange for an electroencephalogram to be done on an outpatient basis. M Rosa DUTTA MD DR: HUGO/jose JOB#: [id number] / [id number]
== END 2018-02-15 10:10 | disposition home or self-care (01) | DRG 312 ==
LOC: ER 22:04 → 1 SOUTH 23:00
PROVIDERS: ADMIT Internal Medicine; ATTEND Internal Medicine
DX: R55 Syncope and collapse (principal); E87.6 Hypokalemia; H40.9 Unspecified glaucoma; I10 Essential (primary) hypertension; M10.9 Gout, unspecified; Z82.3 Family history of stroke; R41.0 Disorientation, unspecified; R00.0 Tachycardia, unspecified; Z82.49 Family history of ischemic heart disease and other diseases of the circulatory system
CPT/HCPCS: 36415; 70450; 71046; 80048; 80053; 80061; 80076; 80307; 81001; 82550; 83690; 83735; 84443; 84484; 85025; 85379; 85610; 85651; 85730; 87040; 93005; 93306; 93880; 96360; G0480; J1650; J7120; 99285-25; G0479

== ENCOUNTER 2018-10-21 08:23 | Emergency (ER) | payer OTHER ==
[~2018-10-21] VITALS: Ht 174 cm; Wt 85.7 kg
[~2018-10-21 08:23] MED LIST: AMLO10TA4 PO
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
[2018-10-21] MEDS ORDERED: IV NORMAL SALINE 1,000ML 1,000 ML IV ONE (08:45)
--- NOTE | 2018-10-21 08:45 | EKG ---
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
[2018-10-21 08:59] LABS: BASO % 0 % (0-3); EOS # 0.1 x10^3/uL (0.0-0.7); EOS % 1 % (0-3); HEMATOCRIT 43.1 % (39.0-53.0); HEMOGLOBIN 14.8 g/dL (13.0-17.5); LYMPH # 1.9 x10^3/uL (1.0-4.8); LYMPH % 19 % (24-48); MEAN CORPUSCULAR HEMOGLOBIN 30 pg (25-35); MEAN CORPUSCULAR HGB CONC 34 g/dL (31-37); MEAN CORPUSCULAR VOLUME 86 fL (79-100); MONO # 0.6 x10^3/uL (0.0-1.1); MONO % 6 % (0-9); NEUT # 7.1 x10^3uL (1.8-7.7); NEUT % 74 % (31-73); PLATELET COUNT 221 x10^3/uL (140-400); RED BLOOD COUNT 5.01 x10^6/uL (4.30-5.70); RED CELL DISTRIBUTION WIDTH 13.2 % (11.5-14.5); WHITE BLOOD COUNT 9.6 x10^3/uL (4.0-11.0)
[2018-10-21 09:19] LABS: ALBUMIN 4.3 g/dL (3.4-5.0); ALBUMIN/GLOBULIN RATIO 1.2 (1.0-1.7); CALCIUM 9.3 mg/dL (8.5-10.1); CREATININE 1.3 mg/dL (0.7-1.3); GFR 62.8; MAGNESIUM 1.8 mg/dL (1.8-2.4); POTASSIUM 3.8 mmol/L (3.5-5.1); TOTAL BILIRUBIN 0.6 mg/dL (0.2-1.0); TOTAL PROTEIN 7.8 g/dL (6.4-8.2)
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
[2018-10-21] MEDS ORDERED: MELO7.5T29 PO (10:19)
[2018-10-21 10:29] VITALS: BP 129/76
== END 2018-10-21 10:38 | disposition home or self-care (01) ==
LOC: ER 08:23
DX: S92.425A Nondisplaced fracture of distal phalanx of left great toe, initial encounter for closed fracture (principal); M79.652 Pain in left thigh; R55 Syncope and collapse; I10 Essential (primary) hypertension; V89.2XXA Person injured in unspecified motor-vehicle accident, traffic, initial encounter; Y93.89 Activity, other specified; Y92.89 Other specified places as the place of occurrence of the external cause; Y99.8 Other external cause status
CPT/HCPCS: 36415; 73552; 73660; 80053; 83735; 83880; 84484; 85025; 85610; 93005; 96360; 99285-25; J7030

== ENCOUNTER 2018-11-25 01:24 | Emergency (ER) | payer OTHER ==
[~2018-11-25] VITALS: Ht 175.3 cm; Wt 88.9 kg
[~2018-11-25 01:24] MED LIST changes: +MELO7.5T29 PO
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
[2018-11-25 01:50] VITALS: BP 137/74
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
[2018-11-25] MEDS ORDERED: CYCL-331 PO (03:29)
[2018-11-25] MEDS ORDERED: HYDR-1179 PO (03:29)
[2018-11-25] MEDS ORDERED: ACET500T68 PO (03:29)
[2018-11-25] MEDS ORDERED: IBUP400T18 PO (03:29)
[2018-11-25] MEDS ORDERED: CYCLOBENZAPRINE 10 MG TABLET. PO ONE (03:30)
[2018-11-25] MEDS ORDERED: ACETAMINOPHEN 500 MG TABLET PO ONE (03:30)
[2018-11-25] MEDS ORDERED: HYDROcodon/IBUPROFEN 7.5/200MG 1 TAB TABLET PO ONE (03:45)
== END 2018-11-25 03:48 | disposition home or self-care (01) ==
LOC: ER 01:24
DX: G43.909 Migraine, unspecified, not intractable, without status migrainosus (principal); M62.838 Other muscle spasm; M54.2 Cervicalgia; R55 Syncope and collapse; M19.90 Unspecified osteoarthritis, unspecified site; I10 Essential (primary) hypertension
CPT/HCPCS: 70450; 72125; 72128; 99284-25